=== PATIENT | male | born 1940 | race Caucasian/White ===

== ENCOUNTER → 2018-09-10 13:01 | Outpatient (CLI) | payer MEDICARE ==
[2014-05-05 06:27] VITALS: BMI 24.0
[~2018-09-10 13:01] MED LIST: LISINOPRIL10 MG GT; PREVACID30 MG PO; REGLAN10 MG PO
== END | disposition home or self-care (01) ==
LOC: D.MRI 13:01
DX: S83.231A Complex tear of medial meniscus, current injury, right knee, initial encounter (principal); X58.XXXA Exposure to other specified factors, initial encounter